=== PATIENT | female | born 1950 | race Caucasian/White ===

== ENCOUNTER → 2017-07-09 | Outpatient (CLI) | payer OTHER ==
[~2017-07-09] MED LIST: IOPAMIDOL (ISOVUE 370) 100 ML BTL IV ONE; LIDOCAINE 1% 300 MG/30 ML SDV ONE
== END ==
LOC: FIMAGING 10:15
PROVIDERS: ATTEND Physical Medicine & Rehabilitation
PROC: 3E0U3KZ Introduction of Other Diagnostic Substance into Joints, Percutaneous Approach (ICD-10-PCS; principal; 2017-07-09)
DX: M75.121 Complete rotator cuff tear or rupture of right shoulder, not specified as traumatic (principal); M24.111 Other articular cartilage disorders, right shoulder; M24.011 Loose body in right shoulder
CPT/HCPCS: 23350; 73040; 73201; Q9967

== ENCOUNTER → 2017-07-13 | Outpatient (CLI) | payer OTHER | LOC: GIMAGING 18:01 | PROVIDERS: ATTEND Nurse Practitioner Family | DX: M89.9 Disorder of bone, unspecified (principal); M19.042 Primary osteoarthritis, left hand; S60.012A Contusion of left thumb without damage to nail, initial encounter | CPT/HCPCS: 73130-PO ==

== ENCOUNTER 2017-12-06 13:29 | Emergency (ER) | payer OTHER ==
--- NOTE | 2017-12-06 14:24 | EDPHY ---
H & P Stated Complaint: STRESSED/FEELING SOB Time Seen by Provider: 12/06/17 14:04 HPI/ROS: CHIEF COMPLAINT: Shortness of breath HISTORY OF PRESENT ILLNESS: 67-year-old female presents with shortness of breath. Onset of shortness of breath yesterday while sitting. Describes the shortness of breath as breathing rapidly. The shortness of breath does not change with exertion and there are no associated symptoms. The shortness of breath lasted a few hours yesterday and then completely resolved. Onset of similar shortness of breath this morning at 9:30 a.m., resolved now. Has a mild upper respiratory infection, including nasal congestion and a slight cough. No fever. Has significant stressors recently and thinks the trouble breathing might be related to the stressors. Takes Abilify for depression and anxiety. Did not take Abilify this morning because she thought Abilify might be causing her symptoms. REVIEW OF SYSTEMS: complete 10 point ROS reviewed and is negative except for the noted elements in the HPI - Personal History Current Tetanus Diphtheria and Acellular Pertussis (TDAP): Yes - Medical/Surgical History Hx Asthma: No Hx Chronic Respiratory Disease: No Hx Diabetes: No Hx Cardiac Disease: No Hx Renal Disease: No Hx Cirrhosis: No Hx Alcoholism: No Hx HIV/AIDS: No Hx Splenectomy or Spleen Trauma: No Other PMH: OSTEOARTHRITIS - Social History Smoking Status: Never smoked - Physical Exam Exam: General Appearance: Alert, pleasant Eyes: Pupils equal and round, no conjunctival pallor or injection ENT, Mouth: Mucous membranes moist Neck: Normal inspection Respiratory: Lungs are clear to auscultation Cardiovascular: Regular rate and rhythm Gastrointestinal: Abdomen is soft and nontender Neurological: A&O, nonfocal, normal gait Skin: Warm and dry, no rash Extremities: Nontender, no pedal edema Psychiatric: Mood and affect normal Constitutional: Initial Vital Signs Temperature (C) 36.6 C 12/06/17 13:40 Heart Rate 85 12/06/17 13:40 Respiratory Rate 20 12/06/17 13:40 Blood Pressure 129/69 H 12/06/17 13:40 O2 Sat (%) 97 12/06/17 13:40 O2 Delivery Mode Room Air Allergies/Adverse Reactions: prednisone Allergy (Verified 12/06/17 13:39) Home Medications: Medication Instructions Recorded Abilify 12/06/17 Atorvastatin Calcium 12/06/17 LORAZEPAM 12/06/17 Sertraline HCl 12/06/17 Medical Decision Making - Diagnostics EKG Interpretation: EKG interpreted by me reveals normal sinus rhythm, rate 83, no ST or T segment changes. Interpretation: Normal EKG. Imaging Results: Imaging Impressions Chest X-Ray 12/06/17 14:20 Impression: Negative for acute cardiopulmonary abnormality.. Imaging: I viewed and interpreted images myself ED Course/Re-evaluation: Patient presents with shortness of breath. Vital signs are normal, including oxygen saturation of 95% on room air. Stat EKG reveals no evidence of ischemia or dysrhythmia. troponin is normal. Chest x-ray is unremarkable. No evidence of pulm edema, PE, pneumonia, PTX, ACS. Heart score is 1 and no cp. With a normal troponin after several hours of SOB yesterday, I feel that I can safely exclude ACS. She ambulated throughout the emergency department and maintained an oxygen saturation of 95% on room air. Discussed with patient the possibility of anxiety contributing to her symptoms and she thinks that this is a possibility. She has a follow-up appointment with her psychiatrist tomorrow. Warning signs discussed. I feel that she is safe and stable for discharge home. Differential Diagnosis: Differential diagnosis includes though it is not limited to pneumonia, pneumothorax, pulmonary embolism, aortic dissection, pericarditis, acute coronary syndrome. - Data Points Laboratory Results: Laboratory Results 12/06/17 14:12 12/06/17 14:12 12/06/17 12/06/17 12/06/17 14:17 14:12 14:12 WBC 8.10 10^3/uL 10^3/uL (3.80-9.50) RBC 3.84 10^6/uL L 10^6/uL (4.18-5.33) Hgb 11.4 g/dL L g/dL (12.6-16.3) Hct 35.6 % L % (38.0-47.0) MCV 92.7 fL fL (81.5-99.8) MCH 29.7 pg pg (27.9-34.1) MCHC 32.0 g/dL L g/dL (32.4-36.7) RDW 14.1 % % (11.5-15.2) Plt Count 208 10^3/uL 10^3/uL (150-400) MPV 9.4 fL fL (8.7-11.7) Neut % (Auto) 72.7 % % (39.3-74.2) Lymph % (Auto) 19.6 % % (15.0-45.0) [place] % (Auto) 6.4 % % (4.5-13.0) Eos % (Auto) 0.5 % L % (0.6-7.6) Baso % (Auto) 0.6 % % (0.3-1.7) Nucleat RBC Rel Count 0.0 % % (0.0-0.2) Absolute Neuts (auto) 5.88 10^3/uL 10^3/uL (1.70-6.50) Absolute Lymphs (auto) 1.59 10^3/uL 10^3/uL (1.00-3.00) Absolute Monos (auto) 0.52 10^3/uL 10^3/uL (0.30-0.80) Absolute Eos (auto) 0.04 10^3/uL 10^3/uL (0.03-0.40) Absolute Basos (auto) 0.05 10^3/uL 10^3/uL (0.02-0.10) Absolute Nucleated RBC 0.00 10^3/uL 10^3/uL (0-0.01) Immature Gran % 0.2 % % (0.0-1.1) Immature Gran # 0.02 10^3/uL 10^3/uL (0.00-0.10) Sodium 142 mEq/L mEq/L (135-145) Potassium 3.9 mEq/L mEq/L (3.3-5.0) Chloride 107 mEq/L mEq/L (97-110) Carbon Dioxide 26 mEq/l mEq/l (22-31) Anion Gap 9 mEq/L mEq/L (8-16) BUN 26 mg/dL H mg/dL (7-23) Creatinine 0.6 mg/dL mg/dL (0.6-1.0) Estimated GFR > 60 Glucose 108 mg/dL H mg/dL (70-100) Calcium 9.3 mg/dL mg/dL (8.5-10.4) POC Troponin I 0.01 ng/mL ng/mL (0.00-0.08) NT-Pro-B Natriuret Pep 398 pg/mL H pg/mL (0-125) Point of Care Test Results: Chemistry 12/06/17 14:17 POC Troponin I 0.01 ng/mL ng/mL (0.00-0.08) Departure - Departure Disposition: Home, Routine, Self-Care Clinical Impression: Dyspnea Qualifiers: Dyspnea type: shortness of breath Qualified Code(s): R06.02 - Shortness of breath Condition: Good Instructions: Dyspnea (ED) Additional Instructions: Return for worsening symptoms or any concerns. Referrals: Keila Kauffman MD [Primary Care Provider] - 1-2 days without fail (Call to make an appointment.)
[2017-12-06 14:26] LABS: PLATELET COUNT 208 10^3/uL (150-400)
[2017-12-06 15:18] VITALS: BP 136/52
--- NOTE | 2017-12-06 18:49 | CPEKG ---
Test Reason : OPEN Blood Pressure : / mmHG Vent. Rate : 083 BPM Atrial Rate : 082 BPM P-R Int : 187 ms QRS Dur : 078 ms QT Int : 371 ms P-R-T Axes : 067 058 059 degrees QTc Int : 436 ms Sinus rhythm Confirmed by Anaya Curran ([id number]) on 12/06/2017 6:48:48 PM Referred By: Confirmed By:Anaya Curran
== END 2017-12-06 15:18 | disposition home or self-care (01) ==
DX: R06.00 Dyspnea, unspecified (principal)
CPT/HCPCS: 84484-PO

== ENCOUNTER → 2018-01-04 | Outpatient (CLI) | payer OTHER | LOC: GIMAGING 16:08 | PROVIDERS: ATTEND Nurse Practitioner Acute Care | DX: M25.562 Pain in left knee (principal); M16.12 Unilateral primary osteoarthritis, left hip | CPT/HCPCS: 73502-PO; 73562-PO ==

== ENCOUNTER 2018-04-21 07:56 | Inpatient (IN) | payer OTHER ==
--- NOTE | 2018-04-21 06:22 | PDHPUP ---
History & Physical Update H&P update statement: This history and physical update is based on an assessment of the patient which was completed after admission or registration (within 24 hours), but prior to the surgery/procedure. H&P update: H&P reviewed & patient examined, no change in patient's condition since H&P completed
[~2018-04-21 07:56] MED LIST changes: -IOPAMIDOL (ISOVUE 370) 100 ML BTL IV ONE; -LIDOCAINE 1% 300 MG/30 ML SDV ONE; +ROPIVACAINE 0.2% 80 MG, EPINEPHrine 0.2 MG, KETOROLAC TROMETHAMINE 30 MG in SYRINGE 0 ML IU ONE; +TRANEXAMIC ACID 3,000 MG in NS (SYRINGE) 50 ML IRR ONE; +TRANEXAMIC ACID 3,000 MG/50 ML BAG IRR ONE
[2018-04-21] MEDS ORDERED: FAMOTIDINE 20 MG TAB PO ONE (08:07)
[2018-04-21] MEDS ORDERED: ceFAZolin 2 GM/DEXTROSE 100 ML IV ONE (08:07)
[2018-04-21] MEDS ORDERED: DEXAMETHASONE 4 MG/ML VIAL IVP ONE (08:07)
[2018-04-21] MEDS ORDERED: ACETAMINOPHEN 325 MG TAB PO ONE (08:07)
[2018-04-21] MEDS ORDERED: LIDOCAINE 1% 2 ML INJ ID PRN (08:08)
[2018-04-21] MEDS ORDERED: LR 1,000 ML IV ONE (08:08)
--- NOTE | 2018-04-21 09:48 | PDANEPAE ---
ANE Past Medical History - Cardiovascular History Hx Hypertension: No Hx Arrhythmias: No Hx Chest Pain: No Hx Coronary Artery / Peripheral Vascular Disease: No Hx CHF / Valvular Disease: No Hx Palpitations: No - Pulmonary History Hx COPD: No Hx Asthma/Reactive Airway Disease: No Hx Recent Upper Respiratory Infection: No Hx Oxygen in Use at Home: No Hx Sleep Apnea: No Sleep Apnea Screening Result - Last Documented: Negative - Neurologic History Hx Cerebrovascular Accident: No Hx Seizures: No Hx Dementia: No - Endocrine History Hx Diabetes: No - Renal History Hx Renal Disorders: No - Liver History Hx Hepatic Disorders: No - Neurological & Psychiatric Hx Hx Neurological and Psychiatric Disorders: Yes Neurological / Psychiatric History Comment: neuropathy bilat feet. depression - Cancer History Hx Cancer: No - Congenital Disorder History Hx Congenital Disorders: No - GI History Hx Gastrointestinal Disorders: No - Other Health History Other Health History: removable partial/retainer - Chronic Pain History Chronic Pain: No - Surgical History Prior Surgeries: 12/24 shoulder reverse replacement. 2011 partial wrist fusion on left ANE Review of Systems Review of Systems: - Exercise capacity METS (RN): 4 METS ANE Patient History - Allergies Allergies/Adverse Reactions: oxycodone [From Percocet] Allergy (Verified 03/29/18 13:07) Other-Enter Comments prednisone Allergy (Verified 03/29/18 13:07) Other-Enter Comments - Home Medications Home Medications: ARIPiprazole [Abilify 2 mg (*)] 1 mg PO DAILY 12/06/17 [Last Taken Unknown] Atorvastatin Calcium [Lipitor 40 mg (*)] 80 mg PO HS 12/06/17 [Last Taken Unknown] LORazepam [Ativan (*)] 0.5 mg PO BID 12/06/17 [Last Taken Unknown] Sertraline HCl [Zoloft 100mg (*)] 150 mg PO BID 12/06/17 [Last Taken Unknown] Ascorbic Acid [Vitamin C 500 mg (*)] 500 mg PO BID 03/23/18 [Last Taken Unknown] Calcium Carb W/Vit D [Calcium Carb W/Vit D 500/200 (*)] 1,000 mg PO BID [Last Taken Unknown] Ferrous Sulfate [Ferrous Sulf 325 MG (*)] 325 mg PO BID 03/23/18 [Last Taken Unknown] Gabapentin [Neurontin 300 MG (*)] 300 - 600 mg PO HS 03/23/18 [Last Taken Unknown] Gabapentin [Neurontin 300 MG (*)] 300 mg PO DAILY@09,14 03/23/18 [Last Taken Unknown] Multivitamins [Multivitamin (*)] 1 each PO DAILY 03/23/18 [Last Taken Unknown] Naproxen Sodium [Aleve 220 MG (*)] 220 mg PO BID PRN 03/23/18 [Last Taken Unknown] Vitamin B Complex [Vitamin B Complex (OTC)] 1 each PO DAILY 03/23/18 [Last Taken Unknown] - NPO status NPO Since - Liquids (Date): 04/20/18 NPO Since - Liquids (Time): 18:00 NPO Since - Solids (Date): 04/20/18 NPO Since - Solids (Time): 19:00 - Smoking Hx Smoking Status: Never smoked - Family Anes Hx Family Hx Anesthesia Complications: none ANE Labs/Vital Signs - Vital Signs Blood Pressure: 137/71 Heart Rate: 70 Respiratory Rate: 18 O2 Sat (%): 93 Height: 162.56 cm Weight: 55.792 kg ANE Physical Exam - Airway Mallampati Score: Class 2 - ASA Status ASA Status: II ANE Anesthesia Plan Anesthesia Plan: spinal
[2018-04-21] MEDS ORDERED: fentaNYL 100 MCG/2 ML INJ ONE ×5 (10:00→13:13)
[2018-04-21] MEDS ORDERED: MIDAZOLAM 2 MG/2 ML VIAL ONE (10:00)
[2018-04-21] MEDS ORDERED: PROPOFOL 200 MG/20 ML VIAL ONE (10:00)
[2018-04-21] MEDS ORDERED: ONDANSETRON 4 MG/2 ML VIAL ONE (10:01)
[2018-04-21] MEDS ORDERED: LIDOCAINE 2% JELLY 6 ML TOPICAL SYR ONE (10:01)
[2018-04-21] MEDS ORDERED: METOCLOPRAMIDE 10 MG/2 ML VIAL ONE (10:01)
[2018-04-21] MEDS ORDERED: MAGNESIUM HYDROXIDE 30 ML UDCUP PO PRN (11:32)
[2018-04-21] MEDS ORDERED: diphenhydrAMINE 25 MG CAP PO PRN (11:32)
[2018-04-21] MEDS ORDERED: ONDANSETRON 4 MG/2 ML VIAL IVP PRN ×2 (11:32→11:37)
[2018-04-21] MEDS ORDERED: PROMETHAZINE HCL 25 MG/ML INJ IVP PRN ×2 (11:32→11:37)
[2018-04-21] MEDS ORDERED: METOCLOPRAMIDE 10 MG/2 ML VIAL IVP PRN (11:32)
[2018-04-21] MEDS ORDERED: BISACODYL 10 MG SUPP PR PRN (11:32)
[2018-04-21] MEDS ORDERED: TEMAZEPAM 15 MG CAP PO PRN (11:32)
[2018-04-21] MEDS ORDERED: POLYETHYLENE GLYCOL 3350 17 GM PKT PO PRN (11:32)
[2018-04-21] MEDS ORDERED: DIPHENOXYLATE/ATROPINE LOMOTIL 1 TAB PO PRN (11:32)
[2018-04-21] MEDS ORDERED: ONDANSETRON DISINTEGRATING 4 MG TAB PO PRN (11:32)
[2018-04-21] MEDS ORDERED: LACTULOSE 20 GM/30 ML UDCUP PO PRN (11:32)
[2018-04-21] MEDS ORDERED: PROMETHAZINE HCL 25 MG SUPPR PR PRN (11:32)
[2018-04-21] MEDS ORDERED: CYCLOBENZAPRINE 10 MG TAB PO PRN (11:32)
--- NOTE | 2018-04-21 11:32 | POSTOPPROG ---
Post Op Note Date of Operation: 04/21/18 Surgeon: Vinny Saul Commercial Attache: gayla saul and junior lee pa-c Anesthesiologist: Dr. Cedeno Anesthesia: GET(General Endotracheal) Pre-op Diagnosis: left hip OA Post-op Diagnosis: same Indication: left hip pain Procedure: left ALLISON Findings: severe OA of left hip Inf/Abcess present in the surg proc area at time of surgery?: No EBL: 50-100
[2018-04-21] MEDS ORDERED: LR 500 ML IV PRN (11:37)
[2018-04-21] MEDS ORDERED: NALOXONE HCL 0.4 MG/ML INJ IVP PRN (11:37)
[2018-04-21] MEDS ORDERED: DIAZEPAM 5 MG/ML 1 ML SYR IVP PRN (11:37)
--- NOTE | 2018-04-21 11:39 | POSTANESTH ---
Post Anesthetic Evaluation Cardiovascular Status: Normal, Stable Respiratory Status: Normal, Stable Level of Consciousness/Mental Status: Can Participate in Eval Pain Control: Adequate, Prn Tx Ordered Nausea/Vomiting Control: Adequate, Prn Tx Ordered Complications Possibly Related to Anesthesia: None Noted
[2018-04-21] MEDS: fentaNYL 100 MCG/2 ML INJ IVP PRN ×4 (11:40→12:33)
[2018-04-21] MEDS ORDERED: DIAZEPAM 5 MG/ML 1 ML SYR ONE (11:55)
[2018-04-21] MEDS ORDERED: LR 1,000 ML IV SCH (12:00)
--- NOTE | 2018-04-21 12:54 | PDMN ---
Medical Necessity Medical necessity: [facility] 68 yo s/p S560 Hip Arthroplasty, L ALLISON, [facility] IP only
[2018-04-21] MEDS ORDERED: oxyCODONE IR 5 MG TAB ONE (13:06)
[2018-04-21] MEDS ORDERED: ACETAMINOPHEN 325 MG TAB ONE ×2 (13:19→13:20)
[2018-04-21] MEDS: ACETAMINOPHEN 325 MG TAB PO SCH ×2 (13:20→17:59)
[2018-04-21] MEDS: GABAPENTIN 300 MG CAP PO SCH (14:15)
[2018-04-21] MEDS ORDERED: oxyCODONE IR 5 MG TAB PO ONE (16:45)
[2018-04-21] MEDS: ceFAZolin 2 GM/DEXTROSE 100 ML IV SCH (17:58)
[2018-04-21] MEDS: SERTRALINE HCL 100 MG TAB PO SCH (20:40)
[2018-04-21] MEDS: ASPIRIN 81 MG CHEWABLE TAB PO SCH (20:40)
[2018-04-21] MEDS: FERROUS SULFATE 325 MG TAB PO SCH (20:41)
[2018-04-21] MEDS: FAMOTIDINE 20 MG TAB PO SCH (20:41)
[2018-04-21] MEDS: LORazepam 0.5 MG TAB PO SCH (20:41)
[2018-04-21] MEDS: SENNOSIDES/DOCUSATE SODIUM TAB PO SCH (20:44)
[2018-04-21] MEDS ORDERED: ATORVASTATIN CALCIUM 40 MG TAB PO SCH (21:00)
[2018-04-21] MEDS ORDERED: GABAPENTIN 300 MG CAP PO SCH (21:00)
[2018-04-22] MEDS: ACETAMINOPHEN 325 MG TAB PO SCH ×3 (00:45→14:26)
[2018-04-22] MEDS: oxyCODONE IR 5 MG TAB PO PRN ×3 (00:49→11:10)
[2018-04-22] MEDS: ceFAZolin 2 GM/DEXTROSE 100 ML IV SCH (01:55)
[2018-04-22] MEDS: SENNOSIDES/DOCUSATE SODIUM TAB PO SCH (08:03)
[2018-04-22] MEDS: GABAPENTIN 300 MG CAP PO SCH ×2 (08:03→14:29)
[2018-04-22] MEDS: FERROUS SULFATE 325 MG TAB PO SCH (08:04)
[2018-04-22] MEDS: FAMOTIDINE 20 MG TAB PO SCH (08:04)
[2018-04-22] MEDS: ASPIRIN 81 MG CHEWABLE TAB PO SCH (08:04)
[2018-04-22] MEDS: SERTRALINE HCL 100 MG TAB PO SCH (08:04)
[2018-04-22] MEDS: LORazepam 0.5 MG TAB PO SCH (08:10)
[2018-04-22] MEDS ORDERED: ARIPiprazole 2 MG TAB PO SCH (09:00)
--- NOTE | 2018-04-22 11:25 | ASMTLACE ---
LACE Length of stay for Answers: 2 days current admission Acuity / Level of Answers: Yes Care: Did the patient have an inpatient admission? # of Emergency department Answers: 1-2 visits in the last 6 months Social determinants Answers: Mental health diagnosis (anxiety, depression, pers onality disorders, etc.) Score: 9 Date Signed: 04/22/2018 11:24 AM Electronically Signed By:MOISE Oro
[2018-04-22 11:38] VITALS: BP 102/52
--- NOTE | 2018-04-22 13:11 | SOAPPROG ---
SOAP Progress Note Assessment/Plan: Assessment: Patient is doing well POD 1 s/p L ALLISON Pain management: pain is well controlled on oral pain meds. VTE ppx: recommend aspirin 81 mg BID for 4 weeks, cont TABITHA and SCDs Anemia: level is expected initially postop. Asymptomatic. Continue to monitor D/c planning: Patient has done better than anticipated and would like to be discharged to home today. Patient must be released from PT before discharge to home. Plan: 04/22/18 13:10 Subjective: Patient is doing well today, denies SOB, chest pain and n/v Objective: Vital Signs Temp Pulse Resp BP Pulse Ox 36.9 C 70 16 102/52 L 90 L 04/22/18 11:37 04/22/18 11:37 04/22/18 11:37 04/22/18 11:37 04/22/18 11:37 Laboratory Results 04/22/18 05:01 04/21/18 04/22/18 04/23/18 05:59 05:59 05:59 Intake Total 1475 Output Total 2800 500 Balance -1325 -500 RLE; incision dressing is clean and dry, NVI, +pf/df ICD10 Worksheet Patient Problems: Problems Problem Status Onset Primary localized osteoarthritis of left hip Acute
--- NOTE | 2018-04-22 13:26 | GOP ---
[f rep st] OPERATIVE REPORT DATE OF OPERATION: 04/21/2018 SURGEON: Nicholas Gramajo MD RENTAL MANAGEMENT TRAINEE: 1. KIM Rao. 2. KIM Bills. ANESTHESIA: Spinal. PREOPERATIVE DIAGNOSIS: Left hip osteoarthritis. POSTOPERATIVE DIAGNOSIS: Left hip osteoarthritis. PROCEDURE PERFORMED: Total hip arthroplasty with x-ray. FINDINGS: ESTIMATED BLOOD LOSS: 200 cc. INDICATIONS: The patient has progressively worsening arthritis of the hip which has failed medical m anagement. The patient understands the treatment options including continued nonoperative care and h as selected surgical intervention. The patient has decided to undergo total hip arthroplasty via the direct anterior approach, understanding the risks of the procedure including, but not limited to, ne urovascular injury, infection, persistent pain, component wear and loosening, deep venous thrombosis, pulmonary embolism, limb length inequality, hip instability (including dislocation), and intraoperat michelle fractures. DESCRIPTION OF PROCEDURE: After proper identification of the patient including verification and alejandro ing the surgical site, the patient was brought to the operating room and placed in the supine positio n. All bony prominences were well padded. Anesthesia was induced without complication and intraveno us prophylactic antibiotics were administered prior to skin incision. The operative leg was placed in the Trumpf Arch table extension and the well leg in a Yellofin leg ho lder. The patient was prepped and draped in the usual sterile fashion. The C-arm was draped for int raoperative fluoroscopy to check acetabular position, femoral component position including leg length and femoral offset. Attention was then drawn to surgical exposure of the hip. An incision was made with a #10 Bard Lamonte r blade starting 3 cm lateral and 3 cm distal to the anterior superior iliac spine measuring 8-10 cm and coursing distally toward the greater trochanter. The skin and subcutaneous tissues were divided sharply down to the fascia ayala. The fascia ayala was incised in line with the skin incision exposing the underlying tensor fascia ayala muscle. The muscle was bluntly elevated from the fascia and the f irst extracapsular Cobra retractor was placed laterally at the junction of the superior femoral neck and greater trochanter. The lateral femoral circumflex vessels were identified, cauterized, and divi ded with the Aquamantys bipolar cautery. The deep investing fascia of the TFL was divided to allow p linda mobilization of the muscle preventing damage during the retraction. The reflected head of the rectus femoris muscle was elevated off the anterior hip capsule and a medial Cobra retractor was plac ed just proximal to the lesser trochanter. The anterior capsulotomy was made sharply from the superolateral acetabulum to the saddle junction of the superior femoral neck and greater trochanter, then coursing inferomedial towards the lesser troc hanter. The retractors were then placed in the intracapsular position for femoral neck osteotomy. C orresponding to pre-operative templating, the osteotomy was made with the oscillating saw carefully p rotecting the greater trochanter and soft tissues. The femoral head was removed from the acetabulum with a corkscrew and confirmed to be severely arthritic with exposed bone, deformity and osteophytes. Similar findings were confirmed in the acetabulum. The Arch table extension was then placed in 40 degrees external rotation. Attention was then drawn to the acetabular preparation. After placement of the anterior and posterio r Cobra retractors outside the labrum and intracapsular, the circumferential labrum was removed sharp ly. The foveal contents were then removed and hemostasis obtained with cautery. The first reamer selected was sized using the removed femoral head. Reaming began with medialization and then commenced in 2 mm increments at 45 degrees of abduction and 15 degrees of anteversion using fluoroscopic navigation. Reaming ceased 1 mm less than the definitive acetabular component and jessica esponded to the pre-operative templating. The final acetabular component was inserted using fluorosc opy to achieve proper orientation yielding excellent purchase and stability in the acetabulum. The f inal acetabular liner was then placed and its seating confirmed. Attention was then turned to the femur. The Arch table extension was placed in extension and adducti on, delivering the osteotomized femoral neck into the wound. A 2-pronged femoral elevator was placed at the calcar and another at the tip of the greater trochanter. The posterolateral capsule was rele ased with cautery allowing mobilization of the femur lateral and anterior for preparation. The exter nal rotators were visualized and preserved. A curette and rongeur were used to open the starting poi nt for broaching. Serial broaching started with the #0 broach and ended with the broach that exhibit ed excellent fit in the proximal femur. A change in pitch during mallet strikes was accompanied by t he inability to advance the broach any further. The trial reduction was performed and fluoroscopic n avigation was utilized to check limb length. Adjustments were made to equalize limb length according ly. After the final trials were accepted, they were removed and the wound was copiously lavaged. The fem oral component was seated to the same depth as the final broach and the femoral head was impacted ont o the clean trunnion. The hip was then reduced for the final time and once more fluoroscopy was used to check that limb length equality was achieved. The wound was irrigated and closed in layers, the fascia ayala with 2-0 Quill, the subcutaneous tissue with 2-0 Quill, and the skin with Dermabond. Sterile dressings were applied. Final sharps and spon ge counts were accurate. The patient was then transferred to a hospital bed and brought to the [facility] room in stable condition. IMPLANTS: Accolade II, size 3 at 127. Acetabular component is a Trident II, 48 mm. Head is a Biolo x delta 32 mm +0. Liner is a Trident X3, 32 mm. /[id number]/MODL
--- NOTE | 2018-04-22 17:23 | GDS ---
[f rep st] DISCHARGE SUMMARY ADMISSION DIAGNOSIS: Left hip osteoarthritis. DISCHARGE DIAGNOSIS: Left hip osteoarthritis. PROCEDURE: Left total hip arthroplasty. VTE PROPHYLAXIS: Recommend aspirin 81 mg twice daily for 4 weeks. BRIEF DESCRIPTION OF HOSPITAL STAY: Patient was admitted for an elective joint arthroplasty. The pa belkys tolerated the procedure well and has passed physical therapy. The patient was given appropriat e antibiotic prophylaxis and venous thromboembolism prophylaxis. The patient's pain was well control led on oral pain medication. Patient was holding down food and had urinated. Decision was made to d ischarge the patient. The patient was given post-operative prescriptions pre-operatively. PLAN: Follow up with Dr. Gramajo's office on May 13 at 9:30 a.m. /[id number]/MODL
== END 2018-04-22 14:46 | disposition home or self-care (01) | DRG 470 ==
LOC: F3N 07:56
PROVIDERS: ADMIT Orthopaedic Surgery; ATTEND Orthopaedic Surgery
PROC: 0SRB04Z Replacement of Left Hip Joint with Ceramic on Polyethylene Synthetic Substitute, Open Approach (ICD-10-PCS; principal; 2018-04-21 10:00)
DX: M16.12 Unilateral primary osteoarthritis, left hip (principal); G62.9 Polyneuropathy, unspecified; F32.9 Major depressive disorder, single episode, unspecified
CPT/HCPCS: 97110-GP; 97116-GP; 97161-GP; J0171; J0690; J1100; J1885; J2250; J2405; J2704; J2765; J2795; J3010; J3360

== ENCOUNTER 2018-04-29 15:53 | Inpatient (IN) | payer OTHER ==
--- NOTE | 2018-04-29 17:16 | PDHPUP ---
History & Physical Update H&P update statement: This history and physical update is based on an assessment of the patient which was completed after admission or registration (within 24 hours), but prior to the surgery/procedure. Print Patient Name RAO VILLANUEVA (68yo, F) ID# [id number] Appt. Date/Time 04/29/2018 02:45PM 1950 Service Dept. MAIN OFFICE Provider ADRIENNE GRAMAJO PA-C Insurance Med Primary: [place] Insurance # : [id number] Med Secondary: [employer] [place] (MEDICARE SUPPLEMENT) Insurance # : [id number] Prescription: CMX - Member is eligible. details Chief Complaint Pt is here today for her LTHA recheck. Pt state she heard a noise and had a sharp pain on Thursday night. She is here for further evaluation. Patient's Care Team Orthopedic Surgeon: KADE YEH MD: [facility] [address], , Primary Care Provider: TRUNG PANIAGUA MD: [address] [place] [phone], Ph , Patient's Pharmacies [facility] [id number] IN [employer] (ERX): [address] [facility] [address], Ph [phone], Vitals None recorded. Allergies Reviewed Allergies NKDA Medications Reviewed Medications ARIPiprazole 5 mg tablet Internal Note: takes 1/4 tab daily 04/08/18 entered Liseth Strumilowska atorvastatin 80 mg tablet 1 tablet(s) every day. 03/26/18 filled [facility] calcium 1600mg total 04/08/18 entered Liseth Strumilowska calcium citrate 04/08/18 entered Bayonne Strumilowska celecoxib 200 mg capsule TAKE 2 CAPSULES BY MOUTH THE NIGHT BEFORE SURGERY WITH FOOD, THEN 1 CAP DAILY WITH FOOD X3 WEEKS 04/08/18 filled [facility] cyclobenzaprine 10 mg tablet TAKE 1 TABLET(S) EVERY 8 HOURS NEEDED FOR MUSCLE SPASMS 04/08/18 filled [facility] diclofenac 1 % topical gel 03/26/18 filled [facility] ferrous sulfate 325mg 04/08/18 entered Liseth Borrego gabapentin 300 mg capsule tid 04/01/18 filled [facility] LORazepam 0.5 mg tablet 1 tablet(s) twice a day. 03/11/18 filled [facility] multivitamin 04/08/18 entered Liseth Borrego ondansetron HCl 4 mg tablet TAKE 1 TAB EVERY 6 HOURS NEEDED FOR NAUSEA 04/09/18 filled [facility] oxyCODONE 5 mg tablet Take 1 tablet(s) EVERY 4 HOURS as needed for pain 04/26/18 prescribed Adrienne Gramajo PA-C sertraline 100 mg tablet 3 tablet(s) every day. 04/15/18 filled [facility] vitamin B complex 04/08/18 entered Liseth Borrego Vitamin C 500mg 04/08/18 entered Liseth Borrego Vitamin D 500mg 04/08/18 entered Liseth Borrego Vaccines None recorded. Problems Reviewed Problems Degenerative joint disease of shoulder region - Onset: 07/23/2017, Right Family History Reviewed Family History Father - Malignant neoplastic disease (onset age: 79) ( age: 85) Mother - Osteoporosis ( age: 80) Social History Reviewed Social History Smoking Status: Never smoker Non-smoker Tobacco-years of use: 0 Occupation: retired Employer: retired Occupational health risks: fell one time Has smoked since age: 1 Chewing tobacco: none Alcohol intake: None Caffeine intake: Moderate Illicit drugs: no Exercise level: Occasional Sporting activities: walking Hand Dominance: Left Education: 12 Live alone or with others?: alone Surgical History Reviewed Surgical History Orthopaedic Surgery - 06/12/2009 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 Past Pregnancies None recorded. Past Medical History Reviewed Past Medical History Anxiety Disorder: Y Arthritis: Y Depression: Y Elevated Cholesterol: Y Screening None recorded. HPI 8 days s/p L ALLISON had spasm Thursday night, twisted and felt popping sensation and increase in pain in left leg. taking oxycodone ROS ROS as noted in the HPI Physical Exam Patient is a 68-year-old female. LLE: pain with passive and active ROM of left hip, NVI, 2+ edema Assessment / Plan periprosthetic femur fracture of L ALLISON recommend revision L ALILSON, femoral component recommend admit to [facility], surgery tomorrow by Dr. Gramajo at 1:45pm call with questions Discussed risks and benefits of operative intervention including but not limited to bleeding, infection, need for further surgery, blood clots, blood clots going to the lungs and rare perioperative complications including stroke, heart attack and . We also discussed risk for dislocation, change in leg length and fracture. Patient understands risks and wishes to proceed. recommend NWB LLE patient may need SNF placement postop for support, will see how patient does with PT and mobility postop 1. History of total hip arthroplasty Z96.642: Presence of left artificial hip joint XR, HIP, UNILATERAL Appointment Date: 04/29/2018 Side: LEFT Views (X-RAY, HIP): AP & Frog Lateral 2. Periprosthetic fracture M97.02XA: Periprosthetic fracture around internal prosthetic left hip joint, initial encounter XR, HIP, UNILATERAL Appointment Date: 04/29/2018, Side: LEFT, Views (X-RAY, HIP): AP & Frog Lateral subsided and shifted L femoral stem with distal femur fracture observed on AP Return to Office JAILENE BERGER PA-C for Recheck 15 at MAIN OFFICE on 05/04/2018 at 10:15 AM JAILENE BERGER PA-C for Post op 15 at MAIN OFFICE on 05/13/2018 at 09:30 AM Julito Gramajo M.D. for Post op 15 at MAIN OFFICE on 06/03/2018 at 09: 30 AM Julito Gramajo M.D. for Post op 15 at MAIN OFFICE on 07/15/2018 at 09: 30 AM Encounter Sign-Off Encounter signed-off by Adrienne Gramajo PA-C, 04/29/2018. Encounter performed and documented by Adrienne Gramajo PA-C Encounter reviewed & signed by Adrienne Gramajo PA-C on 04/29/2018 at 5:15pm There is not enough information to calculate an E&M code H&P update: H&P reviewed & patient examined
[2018-04-29] MEDS: ACETAMINOPHEN 325 MG TAB PO PRN (18:33)
[2018-04-29] MEDS: LORazepam 0.5 MG TAB PO PRN (21:27)
[2018-04-29] MEDS: GABAPENTIN 300 MG CAP PO SCH (21:27)
[2018-04-29] MEDS: ATORVASTATIN CALCIUM 40 MG TAB PO SCH (21:27)
[2018-04-29] MEDS: SERTRALINE HCL 100 MG TAB PO SCH (21:27)
[2018-04-29] MEDS: FERROUS SULFATE 325 MG TAB PO SCH (21:27)
[2018-04-30] MEDS: SERTRALINE HCL 100 MG TAB PO SCH ×2 (07:46→21:52)
[2018-04-30] MEDS: FERROUS SULFATE 325 MG TAB PO SCH ×2 (07:47→21:53)
[2018-04-30] MEDS: GABAPENTIN 300 MG CAP PO SCH ×3 (07:47→21:52)
[2018-04-30] MEDS: LORazepam 0.5 MG TAB PO SCH (07:47)
[2018-04-30] MEDS: ARIPiprazole 2 MG TAB PO SCH (08:18)
--- NOTE | 2018-04-30 10:08 | PDMN ---
Medical Necessity Medical necessity: Pt meets IP criteria per KIM & RICHARD SIDDIQI- Musculoskeletal Disease; est los >2 mn for eval/tx of periprosthetic femur fx; requiring surgical intervention, pain management & therapies; hx recent L ALLISON; per H&P & order 04/29/18
[2018-04-30] MEDS ORDERED: TRANEXAMIC ACID 3,000 MG/50 ML BAG IRR ONE (10:45)
[2018-04-30] MEDS ORDERED: ROPIVACAINE 0.2% 80 MG, EPINEPHrine 0.2 MG, KETOROLAC TROMETHAMINE 30 MG in SYRINGE 0 ML IU ONE (12:45)
[2018-04-30] MEDS ORDERED: ACETAMINOPHEN 325 MG TAB PO ONE (12:45)
[2018-04-30] MEDS ORDERED: DEXAMETHASONE 4 MG/ML VIAL IVP ONE (12:45)
[2018-04-30] MEDS ORDERED: FAMOTIDINE 20 MG TAB PO ONE (12:45)
[2018-04-30] MEDS ORDERED: LR 1,000 ML IV ONE (12:45)
[2018-04-30] MEDS ORDERED: ceFAZolin 2 GM/DEXTROSE 100 ML IV ONE (12:45)
--- NOTE | 2018-04-30 13:40 | PDANEPAE ---
ANE History of Present Illness janes-prosthetic femur fracture here for revision ALLISON ANE Past Medical History - Cardiovascular History Hx Hypertension: No Hx Arrhythmias: No Hx Chest Pain: No Hx Coronary Artery / Peripheral Vascular Disease: No Hx CHF / Valvular Disease: No Hx Palpitations: No - Pulmonary History Hx COPD: No Hx Asthma/Reactive Airway Disease: No Hx Recent Upper Respiratory Infection: No Hx Oxygen in Use at Home: No Hx Sleep Apnea: Yes Sleep Apnea Screening Result - Last Documented: Negative - Neurologic History Hx Cerebrovascular Accident: No Hx Seizures: No Hx Dementia: No - Endocrine History Hx Diabetes: No - Renal History Hx Renal Disorders: No - Liver History Hx Hepatic Disorders: No - Neurological & Psychiatric Hx Hx Neurological and Psychiatric Disorders: Yes Neurological / Psychiatric History Comment: neuropathy bilat feet. depression - Cancer History Hx Cancer: No - Congenital Disorder History Hx Congenital Disorders: No - GI History Hx Gastrointestinal Disorders: No - Other Health History Other Health History: removable partial/retainer - Chronic Pain History Chronic Pain: No - Surgical History Prior Surgeries: 12/24 shoulder reverse replacement. 2011 partial wrist fusion on left ANE Review of Systems Review of Systems: - Exercise capacity Exercise capacity: >=4 METS ANE Patient History - Allergies Allergies/Adverse Reactions: oxycodone [From Percocet] Allergy (Verified 03/29/18 13:07) Other-Enter Comments prednisone Allergy (Verified 03/29/18 13:07) Other-Enter Comments - Home Medications Home medications: home medication list seen and reviewed Home Medications: ARIPiprazole [Abilify 2 mg (*)] 1 mg PO DAILY 12/06/17 [Last Taken 04/29/18] Atorvastatin Calcium [Lipitor 40 mg (*)] 80 mg PO HS 12/06/17 [Last Taken ] LORazepam [Ativan (*)] 0.5 mg PO DAILY 12/06/17 [Last Taken Unknown] Sertraline HCl [Zoloft 100mg (*)] 150 mg PO BID 12/06/17 [Last Taken 04/29/18] Ferrous Sulfate [Ferrous Sulf 325 MG (*)] 325 mg PO BID 03/23/18 [Last Taken Unknown] Gabapentin [Neurontin 300 MG (*)] 600 mg PO TID 03/23/18 [Last Taken Unknown] Acetaminophen [Tylenol ES 500 mg (*)] 500 mg PO Q6 PRN 04/29/18 [Last Taken Unknown] LORazepam [Ativan (*)] 0.5 mg PO HS PRN 04/29/18 [Last Taken Unknown] oxyCODONE IR [Oxycodone Ir (*)] 5 mg PO Q4 PRN 04/29/18 [Last Taken 04/28/18] - NPO status NPO Status: no food or drink >8 hours NPO Since - Liquids (Date): 04/30/18 NPO Since - Liquids (Time): 11:00 NPO Since - Solids (Date): 04/30/18 NPO Since - Solids (Time): 07:15 - Anes Hx Anes Hx: no prior problems - Smoking Hx Smoking Status: Never smoked - Alcohol Use Alcohol Use: None - Family Anes Hx Family Anes Hx: none Family Hx Anesthesia Complications: none ANE Labs/Vital Signs - Vital Signs Blood Pressure: 124/70 Heart Rate: 81 Respiratory Rate: 17 O2 Sat (%): 94 Height: 162.56 cm Weight: 57.153 kg ANE Physical Exam - Airway Neck exam: FROM Mallampati Score: Class 2 Mouth exam: dentures - Pulmonary Pulmonary: no respiratory distress, clear to auscultation - Cardiovascular Cardiovascular: regular rate and rhythym, no murmur, rub, or gallop - ASA Status ASA Status: II ANE Anesthesia Plan Anesthesia Plan: general endotracheal anesthesia
[2018-04-30] MEDS ORDERED: TRANEXAMIC ACID 3,000 MG in NS (SYRINGE) 50 ML IRR ONE (13:45)
[2018-04-30] MEDS ORDERED: fentaNYL 100 MCG/2 ML INJ ONE ×3 (13:52→16:45)
[2018-04-30] MEDS ORDERED: PROPOFOL 200 MG/20 ML VIAL ONE (13:53)
[2018-04-30] MEDS ORDERED: NALOXONE HCL 0.4 MG/ML INJ IVP PRN (15:37)
[2018-04-30] MEDS ORDERED: PROMETHAZINE HCL 25 MG/ML INJ IVP PRN (15:37)
[2018-04-30] MEDS ORDERED: ACETAMINOPHEN 500 MG TAB PO PRN (15:37)
[2018-04-30] MEDS ORDERED: ONDANSETRON 4 MG/2 ML VIAL IVP PRN (15:37)
[2018-04-30] MEDS ORDERED: DIAZEPAM 5 MG/ML 1 ML SYR IVP PRN (15:37)
[2018-04-30] MEDS ORDERED: HYDROCODONE/APAP 5/325 TAB PO PRN (15:37)
--- NOTE | 2018-04-30 16:05 | SOAPPROG ---
MED Progress Note Assessment/Plan: Assessment: L periprosthetic femur fx s/p L ALLISON discussed risks and benefits with pt and informed consent obtained for revision L ALLISON, femoral component will perform posterior Pt denies any trauma but does have bruise and effusion on her knee of unknown age Plan: 04/30/18 16:03 Objective: Vital Signs Temp Pulse Resp BP Pulse Ox 36.9 C 81 17 124/70 H 94 04/30/18 13:16 04/30/18 13:42 04/30/18 13:42 04/30/18 13:42 04/30/18 13:42 04/29/18 04/30/18 05/01/18 05:59 05:59 05:59 Output Total 1400 Balance -1400 ICD10 Worksheet Patient Problems: Problems Problem Status Onset Primary localized osteoarthritis of left hip Acute
--- NOTE | 2018-04-30 16:06 | POSTOPPROG ---
Post Op Note Date of Operation: 04/30/18 Surgeon: Vinny Gramajo Protective Signal Repairer Helper: Jane ALVAREZ, Vinny ALVAREZ Anesthesiologist: Kayla Anesthesia: LMA Pre-op Diagnosis: L periprosthetic femur fx Post-op Diagnosis: same Indication: pain Procedure: L ALLISON revision femoral stem Findings: proximal femur fx involving lesser troch. Inf/Abcess present in the surg proc area at time of surgery?: No EBL: 100-500
--- NOTE | 2018-04-30 16:21 | POSTANESTH ---
Post Anesthetic Evaluation Cardiovascular Status: Normal, Stable, Similar to Pre-Op Cond Respiratory Status: Normal, Stable, Similar to Pre-op Cond. Level of Consciousness/Mental Status: Can Participate in Eval, Alert and Oriented Pain Control: Adequate, Prn Tx Ordered Nausea/Vomiting Control: Adequate, Prn Tx Ordered Complications Possibly Related to Anesthesia: None Noted
[2018-04-30] MEDS ORDERED: HYDROmorphONE/DILAUDID 2 MG/ML INJ ONE (16:45)
[2018-04-30] MEDS: fentaNYL 100 MCG/2 ML INJ IVP PRN ×2 (16:46→17:38)
[2018-04-30] MEDS: HYDROmorphONE/DILAUDID 2 MG/ML INJ IVP PRN ×2 (16:52→17:38)
[2018-04-30] MEDS: ATORVASTATIN CALCIUM 40 MG TAB PO SCH (21:52)
[2018-04-30] MEDS: LORazepam 0.5 MG TAB PO PRN (21:55)
[2018-05-01] MEDS ORDERED: LR 1,000 ML IV SCH (00:30)
[2018-05-01] MEDS: ACETAMINOPHEN 325 MG TAB PO PRN ×3 (01:05→13:53)
[2018-05-01] MEDS: ARIPiprazole 2 MG TAB PO SCH (09:44)
[2018-05-01] MEDS: FERROUS SULFATE 325 MG TAB PO SCH ×2 (09:45→21:18)
[2018-05-01] MEDS: LORazepam 0.5 MG TAB PO SCH (09:46)
[2018-05-01] MEDS: GABAPENTIN 300 MG CAP PO SCH ×3 (09:48→21:20)
[2018-05-01] MEDS: ENOXAPARIN 40 MG/0.4 ML SYR SC SCH (09:48)
[2018-05-01] MEDS: SERTRALINE HCL 100 MG TAB PO SCH ×2 (09:49→21:18)
[2018-05-01] MEDS: oxyCODONE IR 5 MG TAB PO PRN ×2 (11:04→18:54)
[2018-05-01] MEDS: CYCLOBENZAPRINE 10 MG TAB PO PRN ×2 (13:55→21:38)
--- NOTE | 2018-05-01 19:25 | SOAPPROG ---
SOAP Progress Note Assessment/Plan: Assessment: L periprosthetic femur fx s/p L ALLISON with revision of femur pt states her pain is tolerable wants to go home but not ready today educated on post hip precautions and recovery expectations likely dc home vs SNF on Thursday cont WBAT if hct drops further will discuss risks of ASA vs lovenox Plan: 04/30/18 16:03 05/01/18 19:22 Objective: Vital Signs Temp Pulse Resp BP Pulse Ox 37.1 C 89 18 97/50 L 87 L 05/01/18 15:40 05/01/18 15:40 05/01/18 15:40 05/01/18 15:40 05/01/18 15:40 Laboratory Results 05/01/18 05:00 05/01/18 05:00 04/30/18 05/01/18 05/02/18 05:59 05:59 05:59 Intake Total 2370 1125 Output Total 1400 1250 2050 Balance -1400 1120 -925 lefthip dressing dry, neuro intact ICD10 Worksheet Patient Problems: Problems Problem Status Onset Primary localized osteoarthritis of left hip Acute
[2018-05-01] MEDS: ATORVASTATIN CALCIUM 40 MG TAB PO SCH (21:20)
[2018-05-02] MEDS: ACETAMINOPHEN 325 MG TAB PO PRN ×3 (03:12→17:58)
[2018-05-02] MEDS: CYCLOBENZAPRINE 10 MG TAB PO PRN ×3 (03:12→21:33)
[2018-05-02] MEDS: LORazepam 0.5 MG TAB PO SCH (09:28)
[2018-05-02] MEDS: SERTRALINE HCL 100 MG TAB PO SCH ×2 (09:28→21:29)
[2018-05-02] MEDS: GABAPENTIN 300 MG CAP PO SCH ×3 (09:29→21:32)
[2018-05-02] MEDS: ARIPiprazole 2 MG TAB PO SCH (09:30)
[2018-05-02] MEDS: FERROUS SULFATE 325 MG TAB PO SCH ×2 (09:30→21:32)
[2018-05-02] MEDS: ENOXAPARIN 40 MG/0.4 ML SYR SC SCH (09:32)
--- NOTE | 2018-05-02 10:46 | SOAPPROG ---
SOAP Progress Note Assessment/Plan: Assessment: L periprosthetic femur fx s/p L ALLISON with revision of femur pt states her pain is better wants to go home but not ready today educated on post hip precautions and recovery expectations likely dc home vs SNF on Thursday cont WBAT if hct drops further will discuss risks of ASA vs lovenox encouraged to slowly increase activity Plan: 04/30/18 16:03 05/01/18 19:22 05/02/18 10:46 Objective: Vital Signs Temp Pulse Resp BP Pulse Ox 37.4 C 81 18 100/53 L 93 05/02/18 07:48 05/02/18 07:48 05/02/18 07:48 05/02/18 07:48 05/02/18 07:48 Laboratory Results 05/02/18 09:30 05/01/18 05:00 05/01/18 05/02/18 05/03/18 05:59 05:59 05:59 Intake Total 2370 1375 250 Output Total 1250 3800 350 Balance 1120 -2425 -100 ICD10 Worksheet Patient Problems: Problems Problem Status Onset Primary localized osteoarthritis of left hip Acute
[2018-05-02] MEDS: oxyCODONE IR 5 MG TAB PO PRN ×3 (13:56→21:43)
[2018-05-02] MEDS: ATORVASTATIN CALCIUM 40 MG TAB PO SCH ×2 (21:29→21:33)
[2018-05-03] MEDS: ACETAMINOPHEN 325 MG TAB PO PRN (06:36)
[2018-05-03] MEDS: oxyCODONE IR 5 MG TAB PO PRN (06:36)
[2018-05-03] MEDS: FERROUS SULFATE 325 MG TAB PO SCH (11:00)
[2018-05-03] MEDS: GABAPENTIN 300 MG CAP PO SCH (11:00)
[2018-05-03] MEDS: LORazepam 0.5 MG TAB PO SCH (11:01)
[2018-05-03] MEDS: ENOXAPARIN 40 MG/0.4 ML SYR SC SCH (11:01)
[2018-05-03] MEDS: ARIPiprazole 2 MG TAB PO SCH (11:01)
[2018-05-03] MEDS: SERTRALINE HCL 100 MG TAB PO SCH (11:01)
--- NOTE | 2018-05-03 11:16 | ASMTCMCOM ---
CM Note CM Note Notes: Discussed with Dr. Gramajo as well as PT and primary RN. Dr. Gramajo okay with [facility] upon d/c. Patient has 17 stairs to maneuver at home, she feels more comfortable discharging home with friend Oskar for the next few days. Patient would like [facility]. Spoke with Rachelle, able to accept. Patient's friend lives at [address] [place] [phone]. Phone # correct in chart. Plan: [facility] PT/OT Date Signed: 05/03/2018 11:15 AM Electronically Signed By:Tara Stone RN
[2018-05-03 11:25] VITALS: BP 100/49
--- NOTE | 2018-05-03 13:33 | PDFACE2FAC ---
Face to Face Encounter 1. I certify that this patient is under my care and that I, or a nurse practitioner or physician's special events assistant working with me, had a [id number] encounter that meets the physician bjne-bs-ocij encounter requirements with this patient on 05/03/18. 2. I certify that based on my findings, the following services are medically necessary home health services: [X Nursing] [X Physical Therapy] [ Speech-Language Pathology] 3. The medical condition and clinical findings that support the need for specialized skills, knowledge and judgement of the above services are: [s/p revision R ALLISON due to periprosthetic femur fracture] 4. I certify this patient is homebound* because [the patient's condition restricts their ability to leave their home except with the assistance of another individual or the aid of a supportive device.] I certify that this patient is confined to his/her home and needs intermittent usp care, physical and/or speech therapy. This patient is under my care and I have authorized home health services. * Homebound is defined by Medicare as follows: absences from home require considerable and tacking effort and or for medical reasons or protestant services or are infrequent or of short duration when for other reasons*.
--- NOTE | 2018-05-03 13:36 | PDIAF ---
- Diagnosis Diagnosis: s/p R ALLISON revision due to periprosthetic fracture Code Status: Full Code - Medication Management Discharge Medications: electronically signed and located in the Home Medication List. - Orders Services needed: Home Care, Certified Employee Benefits Attorney, Physical Therapy, Occupational Therapy Home Care Face to Face: I certify that this patient was under my care and that I had the required enfv-nt-rrwa encounter meeting the encounter requirements on the discharge day. My findings support the fact that the patient is homebound as defined in Home Care Face to Face Continued: CMS Chapter 7 Medicare Benefits Manual 30.1.1 , The condition of the patient is such that there exists a normal inability to leave home and consequently, leaving home would require a considerable and taxing effort. Diet Recommendation: no restrictions on diet Diet Texture: Regular Texture Diet Additional Instructions: Joint Protocol-Hip Replacement Follow up with Dr. Banks office as scheduled After surgery instructions: Take Aspirin 81mg by mouth morning and evening for 4 weeks (helps to prevent blood clots) Wear thigh high TABITHA hose on both legs during the daytime for 2 weeks (helps to prevent blood clots and decrease swelling in the surgical leg). It is ok to remove TABITHA hose at night time to give your legs a break. It is common for swelling and bruising to occur in the entire surgical leg even extending to the foot, if concerned call Dr. Hernandez office [phone] Weight bearing as tolerated Must use a walker for 21 days Activity restrictions include anterior and posterior approach, also no active hip flexion exercises Ice at least 3-5 times a day for 30 minutes each time, if not more often. ~~If you have further questions that are not addressed here, please look at the information packet handed to you at the preop appointment. ~Most will be answered on the FAQs, after surgery instructions and incision care pages. ~You may also call Dr. Banks office with questions as well. *IF YOU HAVE A LIFE THREATENING EMERGENCY, CALL 911. FOR NON-LIFE THREATENING ISSUES, PLEASE CALL DR. BANKS OFFICE FIRST. A PHYSICIAN IS UPHOLSTERER INSIDE 29/09. Incision/Dressing Care: May shower tomorrow, Incision dressing is waterproof. Do not soak in water, but shower is ok. Keep the incision (mack) dressing clean and dry. If the incision dressing gets soiled or wet underneath, change dressing to the dressing given to you by the hospital. (mack dressing will turn black if drainage occurs) Remove incision dressing (mack one) two weeks after surgery. ~Leave steri strips alone. ~They will fall off on their own. Do not have anyone else remove the incision dressing prior to the stated recommendation (2 weeks after surgery). ~If there are incision concerns, contact Dr. Hernandez office. ~(Adrienne or Dr. Gramajo may remove earlier if concerns arise) If incision site (mack dressing) has drainage, call Dr. Hernandez office, . ~Adrienne and Dr. Gramajo may ask you to come into the office for further evaluation - Follow Up Care Current Providers and Referrals: Keila Kauffman MD [Primary Care Provider] - Vinny Gramajo MD [Medical Doctor] -
--- NOTE | 2018-05-03 13:44 | ASMTDCNOTE ---
Case Management Discharge Discharge Order Complete? Answers: Yes Patient to Obtain Answers: Independently Medications Transportation Arranged Answers: Family/Friends Family Notified Answers: No Notes: Pt to notify Discharge Comments Notes: Patient has been cleared to d/c today. HC notified and will f/u/w patient & obtain orders via [employer]. Friend to transport home to his residence ([facility] aware). No other needs identified at this time. Date Signed: 05/03/2018 01:43 PM Electronically Signed By:Tara Stone RN
--- NOTE | 2018-05-03 13:45 | ASMTLACE ---
ANNEE Length of stay for Answers: 4-6 days current admission Acuity / Level of Answers: Yes Care: Did the patient have an inpatient admission? # of Emergency department Answers: 1-2 visits in the last 6 months Social determinants Answers: Mental health diagnosis (anxiety, depression, pers onality disorders, etc.) Score: 11 Date Signed: 05/03/2018 01:44 PM Electronically Signed By:Tara Stone RN
--- NOTE | 2018-05-03 14:53 | SOAPPROG ---
SOAP Progress Note Assessment/Plan: Assessment: s/p ALLISON revision due to periprosthetic fx pain is well controlled on oral pain meds H/h low, but stable. able to participate with PT VTE ppx: recommended lovenox dailyfor discharge to home, but patient refuses and prefers ASA 81 mg BID d/c planning: d/c to home today with HH and help of patient's friend Plan: 05/03/18 14:49 Subjective: patient is doing ok,states mild pain controlled on oxycodone and flexeril. Objective: Vital Signs Temp Pulse Resp BP Pulse Ox 36.7 C 98 13 100/49 L 94 05/03/18 11:24 05/03/18 11:24 05/03/18 11:24 05/03/18 11:24 05/03/18 11:24 Laboratory Results 05/02/18 09:30 05/01/18 05:00 05/02/18 05/03/18 05/04/18 05:59 05:59 05:59 Intake Total 2750 7800 500 Output Total 7600 8400 600 Balance -4850 -600 -100 incision dressing is clean and dry, NVI, +pf/df ICD10 Worksheet Patient Problems: Problems Problem Status Onset Periprosthetic fracture around internal prosthetic hip joint Acute Primary localized osteoarthritis of left hip Acute
--- NOTE | 2018-05-04 08:23 | ASDISCHSUM ---
Discharge Information Plan Status:Home with Home Health Medically Cleared to Leave: Discharge Date:05/03/2018 03:49 PM CM D/C Disposition:Home Health Service ADT D/C Disposition:Home Health Service Projected Discharge Date:05/03/2018 11:00 AM Transportation at D/C:Friend Discharge Delay Reason: Follow-Up Date:05/03/2018 11:00 AM Discharge Slot: Final Diagnosis: Placement Information Referral Type:*Home Health Care Services Referral ID:[id number] Provider Name:[facility] Care Address 1:[address] Address 2: City:[place] Selection Factors: State:[place] Patient Contact Information Contact Name:NOYILYA Relationship:Friend Address: City: [facility] Phone: State/Zip Code: Email: Financial Information Financial Class:Medicare Primary Plan Desc:MEDICARE INPATIENT Primary Plan Number:[id number] Secondary Plan Desc:DANNY Secondary Plan Number:[id number] Assessment Information LACE LACE Length of stay for Answers: 4-6 days current admission Acuity / Level of Answers: Yes Care: Did the patient have an inpatient admission? # of Emergency department Answers: 1-2 visits in the last 6 months Social determinants Answers: Mental health diagnosis (anxiety, depression, pers onality disorders, etc.) Score: 11 Date Signed: 05/03/2018 01:44 PM Electronically Signed By:Tara Stone RN [facility] CM Progress Note CM Note CM Note Notes: Discussed with Dr. Gramajo as well as PT and primary RN. Dr. Gramajo okay with [facility] upon d/c. Patient has 17 stairs to maneuver at home, she feels more comfortable discharging home with friend Oskar for the next few days. Patient would like [facility]. Spoke with Rachelle, able to accept. Patient's friend lives at [address] [place] [phone]. Phone # correct in chart. Plan: [facility] PT/OT Date Signed: 05/03/2018 11:15 AM Electronically Signed By:Tara Stone RN Case Management Discharge Plan Note Case Management Discharge Discharge Order Complete? Answers: Yes Patient to Obtain Answers: Independently Medications Transportation Arranged Answers: Family/Friends Family Notified Answers: No Notes: Pt to notify Discharge Comments Notes: Patient has been cleared to d/c today. [facility] notified and will f/u/w patient & obtain orders via [employer]. Friend to transport home to his residence ([facility] aware). No other needs identified at this time. Date Signed: 05/03/2018 01:43 PM Electronically Signed By:Tara Stone RN Intervention Information Intervention Type:*Incorrect Registration Date of Service:04/29/2018 09:34 AM Patient Type:Observation Staff Member:TERESE Regalado Courtney Hours: Discipline: Severity: Comment: Intervention Type:*IM-Signed Date of Service:05/03/2018 02:53 PM Patient Type:Inpatient Staff Member:Елена Jimenez Hours: Discipline: Severity: Comment:
--- NOTE | 2018-05-04 09:35 | GOP ---
[f rep st] OPERATIVE REPORT DATE OF OPERATION: 04/30/2018 SURGEON: Nicholas Gramajo MD STRAWHAT BLOCKING OPERATOR: 1. KIM Rao. 2. KIM Maldonado. ANESTHESIA: General. PREOPERATIVE DIAGNOSIS: Left periprosthetic femur fracture. POSTOPERATIVE DIAGNOSIS: Left periprosthetic femur fracture. PROCEDURE PERFORMED: Left hip revision femoral stem. FINDINGS: ESTIMATED BLOOD LOSS: 300 cc. INDICATIONS: The patient is a 68-year-old female, who underwent a left total hip arthroplasty and sterling stained a left periprosthetic femur fracture of unknown mechanism. The risks and benefits were discu ssed with the patient for proceeding with revision. Informed consent was obtained. DESCRIPTION OF PROCEDURE: The patient was identified in the preoperative holding area. The left low er extremity was marked. She was then brought back to the operating room. After induction of anesth esia, she was positioned in the left side up lateral decubitus position. She was prepped and draped in the usual sterile fashion. A time-out was taken confirming patient, laterality, procedures, aller gies, antibiotic status and implant availability. We started with a posterolateral approach to the t high, centered over the greater trochanter. Dissected down to the IT band. This was split in line. We identified the piriformis and the abductors. The capsule and the piriformis were taken down one flap to the level of the lesser trochanter. A proximal femoral fracture was identified with the subs idence and retroversion of the femoral stem. The stem was removed. A cable was placed distal to the fracture site and proximal to the fracture site, and below the lesser trochanter. We then sequentia lly reamed for a 14 mm x 155 mm conical stem. The cone body was 19 mm. Trial reduction was taken. The patient was stable with a plus 4 mm head. All trial components were removed. Final implants wer e placed. The incision was copiously irrigated. The incision was treated with topical tranexamic ac id. We then reduced the hip and found it to be stable throughout our range of motion with the knee f lexed to 90 and internal rotation of the hip to 60 degrees. This gave excellent stability with good leg length dimension. We then repaired our capsulotomy through the abductors and closed the IT band and skin in layers. The patient was placed in a sterile dressing, awakened and brought to PACU in go od condition with a well-perfused limb. The plan is for the patient to be weightbearing as tolerated and she will use a walker orthopedic service. /[id number]/MODL
== END 2018-05-03 15:49 | disposition home health service (06) | DRG 467 ==
LOC: OBSVTOIN 17:12 → F3N 17:12
PROVIDERS: ADMIT Orthopaedic Surgery; ATTEND Orthopaedic Surgery
DX: S72.102A Unspecified trochanteric fracture of left femur, initial encounter for closed fracture (principal); M97.02XA Periprosthetic fracture around internal prosthetic left hip joint, initial encounter; Z96.642 Presence of left artificial hip joint; X50.9XXA Other and unspecified overexertion or strenuous movements or postures, initial encounter
CPT/HCPCS: 97116-GP; 97161-GP; 97165-GO; 97530-GP; 97535-GO; C1713; J0171; J0690; J1100; J1170; J1650; J1885; J2704; J2795; J3010

== ENCOUNTER 2018-05-07 20:22 | Emergency (ER) | payer OTHER ==
--- NOTE | 2018-05-07 20:43 | EDPHY ---
H & P Stated Complaint: POSS L LEG DVT, SWELLING STARTED YESTERDAY/SX 04/30 Time Seen by Provider: 05/07/18 20:31 HPI/ROS: CHIEF COMPLAINT: Left leg swelling HISTORY OF PRESENT ILLNESS: 68-year-old female s/p left periprosthetic femur fracture repair 1 week ago presents with LLE swelling. She underwent left hip replacement 2 weeks ago. She then sustained a nontraumatic left periprosthetic femur fracture 1 week ago. Surgical repair of fx 1 wk ago. Onset of persistent left lower extremity swelling after the second procedure. No pain. Concern for DVT. Sent here for left lower extremity ultrasound. No shortness of breath or chest pain. No history of VTE. REVIEW OF SYSTEMS: complete 10 point ROS reviewed and is negative except for the noted elements in the HPI Source: Patient - Personal History Current Tetanus Diphtheria and Acellular Pertussis (TDAP): Yes - Medical/Surgical History Hx Asthma: No Hx Chronic Respiratory Disease: No Hx Diabetes: No Hx Cardiac Disease: No Hx Renal Disease: No Hx Cirrhosis: No Hx Alcoholism: No Hx HIV/AIDS: No Hx Splenectomy or Spleen Trauma: No Other PMH: OA, R shoulder replaced, L hip, L wrist fusion, tubal, coils, FEMUR FX REPAIR - Social History Smoking Status: Never smoked Alcohol Use: Sober Drug Use: None - Physical Exam Exam: General Appearance: Alert, pleasant Eyes: Pupils equal and round, no conjunctival pallor ENT, Mouth: Mucous membranes moist Neck: Normal inspection Respiratory: Lungs are clear to auscultation Cardiovascular: Regular rate and rhythm Gastrointestinal: Abdomen is soft and nontender Neurological: A&O, nonfocal, slow and steady gait using walker Skin: Warm and dry Extremities: Left lower extremity swelling, moderate, no tenderness Psychiatric: Mood and affect normal Constitutional: Initial Vital Signs Temperature (C) 36.5 C 05/07/18 20:28 Heart Rate 85 05/07/18 20:28 Respiratory Rate 16 05/07/18 20:28 Blood Pressure 117/53 L 05/07/18 20:28 O2 Sat (%) 97 05/07/18 20:28 O2 Delivery Mode Room Air Allergies/Adverse Reactions: prednisone Allergy (Verified 03/29/18 13:07) Other-Enter Comments Home Medications: Medication Instructions Recorded ARIPiprazole [Abilify 2 mg (*)] 1 mg PO DAILY 12/06/17 Atorvastatin Calcium [Lipitor 40 80 mg PO HS 12/06/17 mg (*)] LORazepam [Ativan (*)] 0.5 mg PO DAILY 12/06/17 Sertraline HCl [Zoloft 100mg (*)] 150 mg PO BID 12/06/17 Ferrous Sulfate [Ferrous Sulf 325 325 mg PO BID 03/23/18 MG (*)] Gabapentin [Neurontin 300 MG (*)] 600 mg PO TID 03/23/18 Aspirin [Aspirin 81mg (*)] 81 mg PO BID tab.chew 04/21/18 Cyclobenzaprine [Flexeril 10 MG 10 mg PO Q8HRS PRN tab 04/21/18 (*)] celeCOXIB [Celebrex (*)] 200 mg PO DAILY cap 04/21/18 LORazepam [Ativan (*)] 0.5 mg PO HS PRN 04/29/18 oxyCODONE IR [Oxycodone Ir (*)] 5 mg PO Q4 PRN 04/29/18 Acetaminophen [Tylenol 325mg (*)] 650 mg PO Q6HRS PRN tab 05/03/18 Cyclobenzaprine [Flexeril 10 MG 10 mg PO TID PRN tab 05/03/18 (*)] oxyCODONE IR [Oxycodone Ir (*)] 5 mg PO Q4HRS PRN tab 05/03/18 Medical Decision Making - Diagnostics Imaging Results: Differential diagnosis includes though it is not limited to fracture, dislocation, tendon disruption, neurovascular compromise. Imaging: Discussed imaging studies w/ printing agent Radiologist ED Course/Re-evaluation: This patient presents with left lower extremity swelling after recent surgical procedure. Lower extremity ultrasound is unremarkable, no evidence of DVT. Patient instructed to continue using her compression stockings and to elevate her legs whenever possible. She will follow up with her orthopedic surgeon next week for continued or worsening swelling or any concerns. Warning signs discussed. Differential Diagnosis: Differential diagnosis includes though it is not limited to fracture, dislocation, tendon disruption, neurovascular compromise. Departure - Departure Disposition: Home, Routine, Self-Care Clinical Impression: Left leg swelling Condition: Good Instructions: Leg Edema (ED) Additional Instructions: You do not have a blood clot in your leg. Follow-up with Dr. Gramajo next week. Return for worsening symptoms or any concerns. Referrals: Keila Kauffman MD [Primary Care Provider] - As per Instructions
[2018-05-07 22:19] VITALS: BP 115/62
== END 2018-05-07 22:18 | disposition home or self-care (01) ==
DX: M79.89 Other specified soft tissue disorders (principal)